=== PATIENT | male | born 2000 | race Caucasian/White ===

== ENCOUNTER 2020-05-15 07:22 | Emergency (ER) | payer MEDICAID, SELFPAY ==
--- NOTE | 2020-05-15 07:34 | ED_ITS ---
HPI - URI/Sore Throat General Chief Complaint: Upper Respiratory Symptoms Stated Complaint: covid symptoms Time Seen by Provider: 05/15/20 07:34 Source: patient Mode of arrival: ambulatory Limitations: no limitations History of Present Illness MD elicited complaint: cough and rhinorrhea Pertinent past history: asthma Onset (ago): day(s) (2) Consistency: constant Severity: moderate Description of mucous: clear Able to tolerate fluids by mouth: Yes Exacerbating factors: nothing Context: other (was sanding without a mask recently ) Associated symptoms: denies other symptoms Treatments prior to arrival: none Related Data Allergies Allergy/AdvReac Type Severity Reaction Status Date / Time dog dander Allergy Watery Eye Verified 05/15/20 07:36 Review of Systems Review of Systems: Constitutional : no Fever, no Chills, positive fatigue, positive Malaise ENT/Mouth : no sore throat, positive runny nose Eyes: No Discharge Cardiovascular : No Chest Pain, No SOB Respiratory : positive Cough, No Sputum Gastrointestinal : No Nausea, No Vomiting, No Diarrhea Genitourinary : No Dysuria, No Urinary Frequency Musculoskeletal : no Myalgia Skin : No rash Neuro : No Headache PMFSH Past Medical History Medical History (Updated 05/15/20 @ 07:43 by Stephany Delgadillo) Anxiety Asthma Social History Social History Alcohol intake: current Alcohol intake frequency: a few times a month Smoking Status: Current some day smoker Use of substances other than those prescribed or required for medical reasons: Yes Substance Use Type: Marijuana Advance Directives: No Advance Directives Information Provided: No Physical Exam Vital Signs: Vital Signs: Vital Signs Temp Pulse Resp BP Pulse Ox 05/15/20 07:39 98.3 F 81 18 134/75 98 Body Mass Index 24.7 Appearance: Alert. Oriented X3. No acute distress. Eyes: Pupils equal, round and reactive to light. ENT: Pharynx normal. Neck: Normal inspection. Neck supple. CVS: Normal heart rate and rhythm. Pulses normal. Respiratory: No respiratory distress. Breath sounds normal. Abdomen: Soft and nontender. Skin: Skin warm and dry. Normal skin color. Normal skin turgor. Extremities: No lower extremity edema. No calf ttp Neuro: Oriented X 3. No motor deficit. No sensory deficit. Course Course Course Narrative: RBBB on EKG but chest pain mostly related to COUGH, PERC negative, troponin negative, stable for DC MDM - URI/Sore Throat MDM Narrative Medical decision making narrative: 20 yo male with 2 days of URI symptoms and cough - CXR for pneumonia ordered, EKG, given INH in hand - not toxic, no distress no hypoxia, COVID swab, discussed precautions to return Lab Data Labs: Lab Results 05/15/20 Range/Units 08:05 Troponin I High Sens 3.7 (<3.5-35.0) ng/L ECG Data Attestation: I personally reviewed and interpreted this ECG as follows: ECG interpretation date: 05/15/20 ECG interpretation time: 07:59 Interpretation: Rate: 77 Rhythm: NSR [place]:normal Normal P waves. Normal FLORI. incomplete RBBB ST T wave : normal qTC: normal prior studies: none The study has been interpreted contemporaneously by me. . Discharge Plan Discharge Clinical Impression: Upper respiratory infection Qualifiers: URI type: unspecified viral URI Qualified Code(s): J06.9 - Acute upper respiratory infection, unspecified Patient Disposition: Home, Self-Care Instructions: Viral Syndrome (ED), COVID-19 (Coronavirus Disease 2019) (ED) Additional Instructions: you were tested for COVID we will call you with results in 2 to 4 days, wear a mask, socially distance Stand Alone Forms: Work/School Release
[2020-05-15 07:39] VITALS: BP 134/75; PULSE 81; RESP 18; TEMP 36.8; O2SAT 98; BMI 24.7
--- NOTE | 2020-05-15 07:39 | XR_ITS ---
EXAMINATION: XR CHEST CLINICAL INFORMATION: Pain COMPARISON: None TECHNIQUE: Portable upright AP view of the chest was obtained. FINDINGS: The lungs are clear. There is no pneumothorax, pleural reaction, airspace solid lesion, or effusion. No definite groundglass opacity. The heart is normal in size. The hilar and mediastinal contours and visualized bony structures are unremarkable. IMPRESSION: Unremarkable examination.
--- NOTE | 2020-05-15 07:39 | ECG_ITS ---
Test Reason : CHEST TIGHTNESS Blood Pressure : / mmHG Vent. Rate : 077 BPM Atrial Rate : 077 BPM P-R Int : 166 ms QRS Dur : 108 ms QT Int : 390 ms P-R-T Axes : 065 077 045 degrees QTc Int : 441 ms Normal sinus rhythm with sinus arrhythmia Incomplete right bundle branch block Borderline ECG No previous ECGs available Referred By: Yumi Morris Electronically Signed By:ROBERT HAND MD
[2020-05-15 08:45] LABS: Troponin-I High Sensitivity 3.7 ng/L (<3.5-35.0)
== END 2020-05-15 09:26 | disposition home or self-care (01) ==
PROVIDERS: Emergency Provider Emergency Medicine; PCP Pediatrics Adolescent Medicine
DX: J06.9 Acute upper respiratory infection, unspecified (principal); Z20.828 Contact with and (suspected) exposure to other viral communicable diseases; J45.909 Unspecified asthma, uncomplicated; F17.200 Nicotine dependence, unspecified, uncomplicated
CPT/HCPCS: 71045; 84484; 87635; 93005; 99284